=== PATIENT | female | born 2000 | race Caucasian/White ===

== ENCOUNTER 2021-10-07 16:18 | Outpatient (CLI) | payer BC, MEDICAID, SELFPAY ==
[2021-10-07 18:35] LABS: Amphetamine Urine VISTA NEGATIVE (<1000 ng/mL); Barbiturate Urine VISTA NEGATIVE (< 200 ng/mL); Benzodiazepine Urine VISTA NEGATIVE (< 200 ng/mL); Cocaine Urine VISTA NEGATIVE (< 300 ng/mL); Ecstacy Urine VISTA NEGATIVE (< 500 ng/mL); Methadone Urine VISTA NEGATIVE (< 300 ng/mL); PCP Urine VISTA NEGATIVE (< 25 ng/mL); THC Urine VISTA NEGATIVE (< 50 ng/mL); Vista UDS pH Range 6
[2021-10-10 18:07] LABS: Chlamydia By Nucleic Acid AMP Negative (Negative)
[2021-10-10 21:18] LABS: Gonococcus By Nucleic Acid AMP Negative (Negative)
[2021-10-14 13:33] LABS: HPV Reflexed? NOT INDICATED
== END 2021-10-07 23:59 | disposition home or self-care (01) ==
LOC: LABSPEC 16:19
PROVIDERS: Visit Provider Obstetrics & Gynecology
DX: Z34.90 Encounter for supervision of normal pregnancy, unspecified, unspecified trimester (principal)
CPT/HCPCS: 80307; 87086; 87088; 87491; 87591; 88175; G0145

== ENCOUNTER 2021-11-01 12:24 | Outpatient (CLI) | payer BC, MEDICAID, SELFPAY ==
[2021-11-01 13:35] LABS: Absolute Lymphocyte Count 1.51 X10^3/uL (0.83-4.51); Basophil# 0.03 X10^3/uL; Basophil% 0.3 % (0-1); Eosinophil# 0.04 X10^3/uL; Eosinophils% 0.4 % (0-5); Hematocrit 39.2 % (37-47); Hemoglobin 13.7 g/dL (12.0-15.0); Lymphocyte # 1.51 X10^3/ul (0.83-4.51); Lymphocyte % 16.5 % (19-41); Mean Corp Hgb Conc 34.9 g/dL (32-36); Mean Corpuscular Hgb 30.8 pg (27.0-32.0); Mean Corpuscular Volume 88.1 fL (81-99); Mean Platelet Vol. 9.6 fl (6.2-12.0); Monocyte# 0.53 X10^3/uL; Monocyte% 5.8 % (0-10); NRBC Flagged by Analyzer 0 % (0-5); Neutrophil # 6.99 X10^3/uL (2.7-7.7); Neutrophil % 76.7 % (47-70); Platelet Count 299 K/mm3 (150-450); RBC Distribution Width SD 38.7 fl (35.1-43.9); Red Blood Count 4.45 M/mm3 (4.2-5.4); White Blood Count 9.1 K/mm3 (4.4-11.0)
[2021-11-01 13:37] LABS: NATERA MAILED SPECIMEN
[2021-11-01 14:45] LABS: HIV - WCH Non-Reactive (Nonreactive); Hepatitis B Surface Antigen Non-Reactive (Nonreactive); Hepatitis C Antibody Non-Reactive (Nonreactive); Rubella IgG Reactive (Nonreactive); Syphilis Antibodies Non-reactive
[2021-11-03 15:57] LABS: V-Zoster IgG (Immunity) 2379 index (Immune >165)
== END 2021-11-01 23:59 | disposition home or self-care (01) ==
PROVIDERS: Obstetrics & Gynecology; Referring Provider Nurse Practitioner Women's Health; Visit Provider Nurse Practitioner Women's Health
DX: Z34.90 Encounter for supervision of normal pregnancy, unspecified, unspecified trimester (principal)
CPT/HCPCS: 36415; 85025; 86703; 86762; 86780; 86787; 86803; 86850; 86900; 86901; 87340

== ENCOUNTER → 2022-02-08 | Outpatient (CLI) | payer BC, MEDICAID, SELFPAY ==
[2022-02-08 16:39] LABS: Absolute Lymphocyte Count 1.64 X10^3/uL (0.83-4.51); Absolute Neutrophil Count 9.2 X10^3/uL (2.0-7.7); Basophil# 0.03 X10^3/uL; Basophil% 0.3 % (0-1); Eosinophil# 0.06 X10^3/uL; Eosinophils% 0.5 % (0-5); Hematocrit 32.5 % (37-47); Hemoglobin 10.8 g/dL (12.0-15.0); Lymphocyte # 1.64 X10^3/ul (0.83-4.51); Lymphocyte % 13.9 % (19-41); Mean Corp Hgb Conc 33.2 g/dL (32-36); Mean Corpuscular Hgb 29.8 pg (27.0-32.0); Mean Corpuscular Volume 89.8 fL (81-99); Mean Platelet Vol. 9.3 fl (6.2-12.0); Monocyte# 0.71 X10^3/uL; NRBC Flagged by Analyzer 0 % (0-5); Neutrophil # 9.22 X10^3/uL (2.7-7.7); Neutrophil % 78.3 % (47-70); Platelet Count 356 K/mm3 (150-450); RBC Distribution Width CV 12.1 % (11.6-14.6); RBC Distribution Width SD 39.4 fl (35.1-43.9); Red Blood Count 3.62 M/mm3 (4.2-5.4); White Blood Count 11.8 K/mm3 (4.4-11.0)
[2022-02-08 17:01] LABS: Glucose Challenge Gest 1H 50g 117 mg/dL (70-140)
== END | disposition home or self-care (01) ==
LOC: LAB 16:01
PROVIDERS: Nurse Practitioner Women's Health; Referring Provider Obstetrics & Gynecology; Visit Provider Obstetrics & Gynecology
DX: Z34.90 Encounter for supervision of normal pregnancy, unspecified, unspecified trimester (principal)
CPT/HCPCS: 36415; 82950; 85025

== ENCOUNTER → 2022-04-11 | Outpatient (CLI) | payer BC, MEDICAID, SELFPAY | END | disposition home or self-care (01) | LOC: LABSPEC 16:24 | PROVIDERS: Referring Provider Obstetrics & Gynecology; Visit Provider Obstetrics & Gynecology | DX: Z34.90 Encounter for supervision of normal pregnancy, unspecified, unspecified trimester (principal); Z3A.36 36 weeks gestation of pregnancy | CPT/HCPCS: 87077; 87081; 87186 ==

== ENCOUNTER → 2022-04-25 | Outpatient (CLI) | payer BC, MEDICAID, SELFPAY ==
[2022-04-25 10:30] LABS: Absolute Lymphocyte Count 2.19 X10^3/uL (0.83-4.51); Absolute Neutrophil Count 8.8 X10^3/uL (2.0-7.7); Basophil# 0.06 X10^3/uL; Basophil% 0.5 % (0-1); Eosinophil# 0.07 X10^3/uL; Eosinophils% 0.6 % (0-5); Hemoglobin 12.4 g/dL (12.0-15.0); Lymphocyte # 2.19 X10^3/ul (0.83-4.51); Lymphocyte % 17.8 % (19-41); Mean Corp Hgb Conc 32.6 g/dL (32-36); Mean Corpuscular Hgb 28.7 pg (27.0-32.0); Mean Platelet Vol. 10.2 fl (6.2-12.0); Monocyte# 1.02 X10^3/uL; Monocyte% 8.3 % (0-10); NRBC Flagged by Analyzer 0 % (0-5); Neutrophil # 8.83 X10^3/uL (2.7-7.7); Neutrophil % 71.5 % (47-70); Platelet Count 295 K/mm3 (150-450); RBC Distribution Width CV 14.3 % (11.6-14.6); RBC Distribution Width SD 45.7 fl (35.1-43.9); Red Blood Count 4.32 M/mm3 (4.2-5.4); White Blood Count 12.3 K/mm3 (4.4-11.0)
== END | disposition home or self-care (01) ==
LOC: PAVLAB 10:01
PROVIDERS: Referring Provider Nurse Practitioner Women's Health; Visit Provider Nurse Practitioner Women's Health
DX: O99.019 Anemia complicating pregnancy, unspecified trimester (principal)
CPT/HCPCS: 36415; 85025

== ENCOUNTER 2022-05-14 17:55 | Outpatient (CLI) | payer BC, MEDICAID, SELFPAY ==
[2022-05-14 18:19] VITALS: BP 121/68; PULSE 102; TEMP 36.4; O2SAT 99
[2022-05-14 18:22] VITALS: BMI 31.1
[2022-05-14 19:03] LABS: ROM Internal Control Test YES-OK TO RESULT pt. (Internal QC); ROM Patient Test Negative (Negative)
--- NOTE | 2022-05-18 18:36 | OB.TRI.PN_ITS ---
Progress Notes Date of Service: 05/14/22 Progress Note: Patient presents for triage evaluation secondary to possible LOF FHT: 130 Moderate variability reactive no decelerations category I tracing [place]: no regular Contractions Assessment and plan: amniotic membranes intact Reactive NST, reassuring maternal and status patient discharged to home to follow-up as scheduled. See problem list details for additional plan information. Laboratory Studies: Laboratory Tests 05/14/22 Range/Units 18:27 Vag Amniotic Fld Detect Negative (Negative) Charges/Coding Procedures Urinary/Genital 52xxx-59xxx: [id number] non-stress test Interp
== END 2022-05-14 19:35 | disposition home or self-care (01) ==
LOC: WPOUT 18:03 → WP 18:04
PROVIDERS: Visit Provider Obstetrics & Gynecology
DX: O42.90 Premature rupture of membranes, unspecified as to length of time between rupture and onset of labor, unspecified weeks of gestation (principal)
CPT/HCPCS: 59025; 59050; 84112; 99218; G0378

== ENCOUNTER 2022-05-15 03:33 | Inpatient (IN) | payer BC, MEDICAID, SELFPAY ==
[2022-05-15] VITALS (70 sets, daily range): BP systolic 85–134; BP diastolic 50–97; PULSE 77–119; RESP 20; TEMP 36.1–36.8; O2SAT 96–100; BMI 31.1
[2022-05-15] MEDS: Lactated Ringers 1,000 ML 50 ML IV (04:27)
[2022-05-15] MEDS: LACTATED RINGERS 500 ML 999 ML IV ×4 (04:27→14:43)
[2022-05-15 04:52] LABS: Absolute Lymphocyte Count 2.06 X10^3/uL (0.83-4.51); Absolute Neutrophil Count 9.5 X10^3/uL (2.0-7.7); Basophil# 0.04 X10^3/uL; Basophil% 0.3 % (0-1); Eosinophil# 0.05 X10^3/uL; Eosinophils% 0.4 % (0-5); Hematocrit 36.4 % (37-47); Hemoglobin 12.4 g/dL (12.0-15.0); Lymphocyte # 2.06 X10^3/ul (0.83-4.51); Lymphocyte % 15.9 % (19-41); Mean Corp Hgb Conc 34.1 g/dL (32-36); Mean Corpuscular Hgb 29.4 pg (27.0-32.0); Mean Corpuscular Volume 86.3 fL (81-99); Mean Platelet Vol. 10.5 fl (6.2-12.0); Monocyte# 1.19 X10^3/uL; Monocyte% 9.2 % (0-10); NRBC Flagged by Analyzer 0 % (0-5); Neutrophil # 9.46 X10^3/uL (2.7-7.7); Neutrophil % 73.2 % (47-70); Platelet Count 277 K/mm3 (150-450); RBC Distribution Width SD 46.4 fl (35.1-43.9); Red Blood Count 4.22 M/mm3 (4.2-5.4); White Blood Count 12.9 K/mm3 (4.4-11.0)
[2022-05-15] MEDS: Cefazolin 2 GM in 0.9% Normal Saline 100 ML IV (05:12)
[2022-05-15] MEDS: fentaNYL-bupivacaine (epidural) 100 ML BAG EPIDURAL ×4 (05:42→18:51)
[2022-05-15] MEDS: Ondansetron 4 MG/2 ML Vial IV ×4 (06:09→19:58)
[2022-05-15] MEDS: Lactated Ringers 1,000 ML 200 ML IV ×3 (10:08→22:56)
[2022-05-15] MEDS: Oxytocin 15 Units/NS 250ml 15 UNITS/250 ML IV.SOLN 2 UNITS IV (10:50)
--- NOTE | 2022-05-15 11:53 | HP.PCM.OB_ITS ---
HPI - General General Date of Admission: 05/15/22 HPI Narrative MARK JARQUIN, is a 22 F who presents in labor at 41weeks by LMP. Maternal Data Information KT Calculator Estimated Delivery Date Method Current WG Current Estimate 05/08/22 LMP (Uncertain) 41w 0d Final KT Source: LMP Gestational age: 41 PFSH PFSH Medical History (Updated 05/15/22 @ 11:56 by Rosana Solano CNM) Anemia affecting Home Medications prenat.vits,laurence,[id number] 1 tab PO DAILY 09/27/21 [History Last Taken 05/13/22 21:00] Allergy/AdvReac Type Severity Reaction Status Date / Time amoxicillin Allergy Rash Verified 05/14/22 18:22 Family History Mother Breast cancer remissison x 9 years Social History adopted: No household members: none housing: apartment current occupational status: employed current occupation: [employer] pets and animals: No Smoking Status: Never smoker alcohol intake: never substance use type: does not use do you feel safe at home: Yes History 1 Elective abortions Hx Para 0 Spontaneous abortions Hx # Term Pregnancies Ectopic pregnancies Hx # Pregnancies Multiple births # of living children Visit Details Expected Delivery Route/Plan Labor Preferences- CB/BF classes: encouraged labor support person: Dana labor intervention preferences: [] pain management options preferred: epidural cut cord/dad catch: yes : no- formula PP control planned: discussed discussed possible routes of delivery and associated risks: [] special requests: [] Plans Covid status: discussed Flu vaccine: discussed Tdap vaccine: declined Rhogam: na LARC form signed: yes movement and labor precautions reviewed. Problem list reviewed and updated with the most current plan of care details and appropriate orders placed. Relevant counseling for the gestational age provided. Continue routine care and follow up unless otherwise noted in visit notes/problem list details OB Flowsheet Initial Weight: 117 lb Date -?-?-?-?-?-?-?-?-?-?-?-?- EGA Weight BP Urine Prot -?-?-?-?-?-?-?-?-?-?-?-?- Glucose FHR FuHt Pres Dilation -?-?-?-?-?-?-?-?-?-?-?-?- Effaced St Visit Note 10/07/21 -?-?-?-?-?-?-?-?-?-?-?-?- 9w 4d 117 lb (+0 oz) 118/66 -?-?-?-?-?-?-?-?-?-?-?-?- 189 -?-?-?-?-?-?-?-?-?-?-?-?- SM- CRL cons wit h LMP 11/01/21 -?-?-?-?-?-?-?-?-?-?-?-?- 13w 1d 124 lb (+7 lb) 110/60 -?-?-?-?-?-?-?-?-?-?-?-?- 147 -?-?-?-?-?-?-?-?-?-?-?-?- MH-No Vb, LOF. B rief US to confirm FHT. Labs today 11/29/21 -?-?-?-?-?-?-?-?-?-?-?-?- 17w 1d 126 lb (+9 lb) 110/72 Negative -?-?-?-?-?-?-?-?-?-?-?-?- Negative 155 -?-?-?-?-?-?-?-?-?-?-?-?- SM- no vb lof no regular ctx PRR 12/27/21 -?-?-?-?-?-?-?-?-?-?-?-?- 21w 1d 133 lb (+16 lb) 110/60 -?-?-?-?-?-?-?-?-?-?-?-?- 145 -?-?-?-?-?-?-?-?-?-?-?-?- SM- no vb lof go od fm no regular ctx 01/24/22 -?-?-?-?-?-?-?-?-?-?-?-?- 25w 1d 135 lb (+18 lb) 92/70 Negative -?-?-?-?-?-?-?-?-?-?-?-?- Negative 130 24 -?-?-?-?-?-?-?-?-?-?-?-?- SM- no vb lof go od fm no regular ctx cbc gct next time encouraged CB classes 02/14/22 -?-?-?-?-?-?-?-?-?-?-?-?- 28w 1d 141 lb 8 oz (+24 lb 8 oz) 118/74 Negative -?-?-?-?-?-?-?-?-?-?-?-?- Negative 143 27 -?-?-?-?-?-?-?-?-?-?-?-?- MH-No VB, LOF. G ood FM. taking fe. Larc. 02/28/22 -?-?-?-?-?-?-?-?-?-?-?-?- 30w 1d 145 lb 8 oz (+28 lb 8 oz) 112/80 Trace -?-?-?-?-?-?-?-?-?-?-?-?- Negative 145 29 -?-?-?-?-?-?-?-?-?-?-?-?- JV- no lof, vagi nal bleeding, or dec fm. declines tdap. 03/14/22 -?-?-?-?-?-?-?-?-?-?-?-?- 32w 1d 148 lb 8 oz (+31 lb 8 oz) 118/70 Negative -?-?-?-?-?-?-?-?-?-?-?-?- Negative 125 31 -?-?-?-?-?-?-?-?-?-?-?-?- SM- no vb lof go od fm no regular ctx 03/28/22 -?-?-?-?-?-?-?-?-?-?-?-?- 34w 1d 152 lb (+35 lb) 118/78 Negative -?-?-?-?-?-?-?-?-?-?-?-?- Negative 125 34 -?-?-?-?-?-?-?-?-?-?-?-?- SM- no vb lof go od fm no reuglar ctx 04/11/22 -?-?-?-?-?-?-?-?-?-?-?-?- 36w 1d 155 lb (+38 lb) 112/74 -?-?-?-?-?-?-?-?-?-?-?-?- 130 36 -?-?-?-?-?-?-?-?-?-?-?-?- SM- no vb lof go od fm no reuglar ctx gbs done 04/18/22 -?-?-?-?-?-?-?-?-?-?-?-?- 37w 1d 154 lb 6 oz (+37 lb 6 oz) 113/79 Negative -?-?-?-?-?-?-?-?-?-?-?-?- Negative 139 37 -?-?-?-?-?-?-?-?-?-?-?-?- -No VB, LOF or CTX. Good fm 04/25/22 -?--?-?-?-?-?-?-?-?-?-?-?- 38w 1d 157 lb 6 oz (+40 lb 6 oz) 110/74 Negative -?-?-?-?-?-?-?-?-?-?-?-?- Negative 131 38 1 -?-?-?-?-?-?-?-?--?-?-?-?- 40 -3 -No VB, LOF or CTX. Good FM 05/02/22 -?-?-?-?-?-?-?-?-?-?-?-?- 39w 1d 157 lb 2 oz (+40 lb 2 oz) 109/72 Negative -?-?-?-?-?-?-?-?-?-?-?-?- Negative 125 38 -?-?-?-?-?-?-?-?-?-?-?-?- JV- pt declines exam. no lof, vaginal bleeding, or dec fm. 05/09/22 -?-?-?-?-?-?-?-?-?-?-?-?- 40w 1d 156 lb (+39 lb) 103/70 Negative -?-?-?-?-?-?-?-?-?-?-?-?- Negative 129 38 1 -?-?-?-?-?-?-?-?-?-?-?-?- 40 -3 JV- no lof , v aginal bleeding, or dec fm. setting up IOL for 41 weeks NST FHR Rate Baby A Baseline: 95-100 Variability:: Moderate Accelerations:: 15 x 15 Decelerations:: None NST Reactive:: Yes FHR Category:: Category II Uterine Activity:: irre Vital Signs Vital Signs Vital Signs: 05/15/22 03:46 05/15/22 03:46 05/15/22 03:45 Temperature Temperature Source Temporal Pulse Rate 105 H Blood Pressure 126/70 H BP Systolic 126 BP Diastolic 70 Pulse Ox 05/15/22 03:46 05/15/22 03:46 05/15/22 03:45 Temperature 97.6 F L Temperature Source Pulse Rate 102 H Blood Pressure BP Systolic BP Diastolic Pulse Ox 97 05/15/22 03:51 05/15/22 03:51 05/15/22 05:26 Temperature Temperature Source Pulse Rate 105 H 104 H Blood Pressure BP Systolic BP Diastolic Pulse Ox 97 05/15/22 05:26 05/15/22 05:31 05/15/22 05:31 Temperature Temperature Source Pulse Rate 117 H Blood Pressure BP Systolic BP Diastolic Pulse Ox 100 100 05/15/22 05:33 05/15/22 05:33 05/15/22 05:36 Temperature Temperature Source Pulse Rate 100 88 Blood Pressure 133/97 H BP Systolic 133 BP Diastolic 97 Pulse Ox 05/15/22 05:36 05/15/22 05:38 05/15/22 05:38 Temperature Temperature Source Pulse Rate 85 Blood Pressure 129/74 H BP Systolic 129 BP Diastolic 74 Pulse Ox 100 05/15/22 05:42 05/15/22 05:42 05/15/22 05:41 Temperature Temperature Source Pulse Rate 86 Blood Pressure 108/52 L BP Systolic 108 BP Diastolic 52 Pulse Ox 99 05/15/22 05:46 05/15/22 05:46 05/15/22 05:48 Temperature Temperature Source Pulse Rate 102 H Blood Pressure 106/53 L BP Systolic 106 BP Diastolic 53 Pulse Ox 98 05/15/22 05:48 05/15/22 05:48 05/15/22 05:48 Temperature 97.5 F L Temperature Source Temporal Pulse Rate 93 Blood Pressure BP Systolic BP Diastolic Pulse Ox 05/15/22 05:51 05/15/22 05:51 05/15/22 05:54 Temperature Temperature Source Pulse Rate 105 H Blood Pressure 112/54 L BP Systolic 112 BP Diastolic 54 Pulse Ox 98 05/15/22 05:54 05/15/22 05:56 05/15/22 05:56 Temperature Temperature Source Pulse Rate 98 102 H Blood Pressure BP Systolic BP Diastolic Pulse Ox 98 05/15/22 05:59 05/15/22 05:59 05/15/22 06:01 Temperature Temperature Source Pulse Rate 94 104 H Blood Pressure 93/55 L BP Systolic 93 BP Diastolic 55 Pulse Ox 05/15/22 06:01 05/15/22 06:03 05/15/22 06:03 Temperature Temperature Source Pulse Rate 108 H Blood Pressure 128/60 H BP Systolic 128 BP Diastolic 60 Pulse Ox 98 05/15/22 06:27 05/15/22 06:27 05/15/22 06:27 Temperature Temperature Source Pulse Rate 94 Blood Pressure 113/56 L BP Systolic 113 BP Diastolic 56 Pulse Ox 97 05/15/22 06:26 05/15/22 06:26 05/15/22 07:16 Temperature 97.8 F Temperature Source Temporal Pulse Rate Blood Pressure 102/51 L BP Systolic 102 BP Diastolic 51 Pulse Ox 05/15/22 07:16 05/15/22 07:16 05/15/22 07:16 Temperature Temperature Source Temporal Pulse Rate 85 Blood Pressure BP Systolic BP Diastolic Pulse Ox 98 05/15/22 07:16 05/15/22 08:14 05/15/22 08:14 Temperature 97.6 F L Temperature Source Pulse Rate 94 Blood Pressure 97/55 L BP Systolic 97 BP Diastolic 55 Pulse Ox 05/15/22 08:14 05/15/22 08:14 05/15/22 08:19 Temperature Temperature Source Temporal Pulse Rate 89 Blood Pressure BP Systolic BP Diastolic Pulse Ox 99 05/15/22 08:19 05/15/22 08:14 05/15/22 08:24 Temperature 97.6 F L Temperature Source Pulse Rate 85 Blood Pressure BP Systolic BP Diastolic Pulse Ox 98 05/15/22 08:24 05/15/22 08:29 05/15/22 08:29 Temperature Temperature Source Pulse Rate 85 Blood Pressure BP Systolic BP Diastolic Pulse Ox 97 96 05/15/22 08:34 05/15/22 08:34 05/15/22 08:39 Temperature Temperature Source Pulse Rate 91 83 Blood Pressure BP Systolic BP Diastolic Pulse Ox 97 05/15/22 08:39 05/15/22 08:44 05/15/22 08:44 Temperature Temperature Source Pulse Rate 84 Blood Pressure BP Systolic BP Diastolic Pulse Ox 97 97 05/15/22 08:49 05/15/22 08:49 05/15/22 08:54 Temperature Temperature Source Pulse Rate 80 80 Blood Pressure BP Systolic BP Diastolic Pulse Ox 97 05/15/22 08:54 05/15/22 08:59 05/15/22 08:59 Temperature Temperature Source Pulse Rate 79 Blood Pressure BP Systolic BP Diastolic Pulse Ox 97 97 05/15/22 09:04 05/15/22 09:04 05/15/22 09:09 Temperature Temperature Source Pulse Rate 82 84 Blood Pressure BP Systolic BP Diastolic Pulse Ox 97 05/15/22 09:09 05/15/22 09:13 05/15/22 09:13 Temperature Temperature Source Pulse Rate 96 Blood Pressure 104/53 L BP Systolic 104 BP Diastolic 53 Pulse Ox 97 05/15/22 09:14 05/15/22 09:14 05/15/22 09:13 Temperature Temperature Source Temporal Pulse Rate 119 H Blood Pressure BP Systolic BP Diastolic Pulse Ox 99 05/15/22 09:13 05/15/22 09:15 05/15/22 09:19 Temperature 97.0 F L Temperature Source Pulse Rate 90 98 Blood Pressure BP Systolic BP Diastolic Pulse Ox 05/15/22 09:19 05/15/22 09:24 05/15/22 09:24 Temperature Temperature Source Pulse Rate 101 H Blood Pressure BP Systolic BP Diastolic Pulse Ox 98 98 05/15/22 09:29 05/15/22 09:29 05/15/22 09:34 Temperature Temperature Source Pulse Rate 91 98 Blood Pressure BP Systolic BP Diastolic Pulse Ox 98 05/15/22 09:34 05/15/22 09:39 05/15/22 09:39 Temperature Temperature Source Pulse Rate 97 Blood Pressure BP Systolic BP Diastolic Pulse Ox 98 98 05/15/22 09:44 05/15/22 09:44 05/15/22 09:49 Temperature Temperature Source Pulse Rate 94 95 Blood Pressure BP Systolic BP Diastolic Pulse Ox 98 05/15/22 09:49 05/15/22 09:54 05/15/22 09:54 Temperature Temperature Source Pulse Rate 82 Blood Pressure BP Systolic BP Diastolic Pulse Ox 98 97 05/15/22 09:59 05/15/22 09:59 05/15/22 10:04 Temperature Temperature Source Pulse Rate 89 94 Blood Pressure BP Systolic BP Diastolic Pulse Ox 98 05/15/22 10:04 05/15/22 10:09 05/15/22 10:09 Temperature Temperature Source Pulse Rate 97 Blood Pressure BP Systolic BP Diastolic Pulse Ox 98 98 05/15/22 10:14 05/15/22 10:14 05/15/22 10:19 Temperature Temperature Source Pulse Rate 97 91 Blood Pressure BP Systolic BP Diastolic Pulse Ox 98 05/15/22 10:19 05/15/22 10:24 05/15/22 10:24 Temperature Temperature Source Pulse Rate 79 Blood Pressure BP Systolic BP Diastolic Pulse Ox 97 97 05/15/22 10:29 05/15/22 10:29 05/15/22 10:34 Temperature Temperature Source Pulse Rate 84 94 Blood Pressure BP Systolic BP Diastolic Pulse Ox 98 05/15/22 10:34 05/15/22 10:36 05/15/22 10:36 Temperature Temperature Source Pulse Rate 81 Blood Pressure 110/62 BP Systolic 110 BP Diastolic 62 Pulse Ox 98 05/15/22 10:36 05/15/22 10:36 05/15/22 11:34 Temperature 97.5 F L Temperature Source Temporal Temporal Pulse Rate Blood Pressure BP Systolic BP Diastolic Pulse Ox 05/15/22 11:34 05/15/22 11:34 05/15/22 11:34 Temperature Temperature Source Pulse Rate 85 Blood Pressure 101/66 BP Systolic 101 BP Diastolic 66 Pulse Ox 100 05/15/22 11:34 Temperature 97.2 F L Temperature Source Pulse Rate Blood Pressure BP Systolic BP Diastolic Pulse Ox Weight Weight: 159 lb 4 oz Body Mass Index (BMI) 31.1 Physical Exam Const alert, oriented x3 and no apparent distress General Appearance: cooperative, comfortable and well kempt; Negative for in distress Orientation / Consciousness: awake and oriented to person Exam Limitations: no limitations HEENT normocephalic Mouth: oral and palatal mucosa normal Neck full ROM and thyroid normal Chest inspection of chest normal Resp normal respiratory effort Effort and Inspection: able to speak in complete sentences and symmetric chest movement Cardio regular rate Peripheral Pulses: pulses 2+ throughout GI normal to inspection, nondistended, normoactive bowel sounds Inspection: gravid no CVA tenderness and appearance of the vagina normal External Female Exam: normal appearance of the urethra; Negative for external lesion OB / External & Speculum: external exam normal Manual OB Exam: estimated gestational size appropriate and presentation cephalic Uterus Palpation: Negative for uterus tender Extremity normal to inspection Skin no rashes or lesions noted Neuro deep tendon reflexes 2+ bilaterally and gait normal Motor Exam: strength 5/5 throughout and clonus absent Psych Activity / Motor Behavior: appropriate eye contact Speech: normal speech Labs Labs Labs: Blood Type O POSITIVE Antibody Screen NEGATIVE Hct 36.4 % (37-47) L Hgb 12.4 g/dL (12.0-15.0) Syphilis Total Ab Non-reactive VZV IgG Antibody 2379 index (Immune >165) Rubella IgG Antibody Reactive (Nonreactive) Hep Bs Antigen Non-Reactive (Nonreactive) Chlamydia DNA (JEFF) Negative (Negative) Neisseria gonorrhoeae DNA (JEFF) Negative (Negative) HIV 1&2 Antibody Non-Reactive (Nonreactive) Glucose 1 Hr 50 gm 117 mg/dL (70-140) Assessment & Plan (1) Supervision of normal first : COMMENT: PRR KT:05/08/22 frantz Todd BF:Aerion (2) GBS (group B Streptococcus carrier), +RV culture, currently : COMMENT: PCN in labor (3) Active labor at term: PLAN: -admit to L&D with routine orders -AROM'd by Dr. Adam clear fluid -Pitocin per protocol for unchanged cervical exam -GBS coverage per protocol
--- NOTE | 2022-05-15 13:07 | PN.OBGYN_ITS ---
Subjective Subjective comfortable with epidural Objective Data Objective Data Vital Signs: Vital Signs Temp Pulse BP Pulse Ox 97.0 F L 86 101/65 100 05/15/22 12:32 05/15/22 12:32 05/15/22 12:32 05/15/22 11:34 Weight: 159 lb 4 oz Body Mass Index (BMI) 31.1 Intake & Output: Intake and Output for Last 24 Hours 05/13/22 05/14/22 05/15/22 23:59 23:59 23:59 Intake Total 2577.17 / 2577.17 Balance 2577.17 / 2577.17 Lab / Micro Data Result Diagrams: 05/15/22 04:25 Labs: Laboratory Results - last 24 hr 05/15/22 04:25: WBC 12.9 H, RBC 4.22, Hgb 12.4, Hct 36.4 L, MCV 86.3, MCH 29.4, MCHC 34.1, RDW Std Deviation 46.4 H, RDW Coeff of Rich 15.0 H, Plt Count 277, MPV 10.5, Immature Gran % (Auto) 1.000 H, Neut % (Auto) 73.2 H, Lymph % (Auto) 15.9 L, [place] % (Auto) 9.2, Eos % (Auto) 0.4, Baso % (Auto) 0.3, Absolute Neuts (auto) 9.5 H, Absolute Lymphs (auto) 2.06, Nucleated RBC % 0 05/15/22 04:25: Blood Type O POSITIVE, Antibody Screen NEGATIVE Micro: Microbiology 05/15/22 04:25 Nasal Secretion SARS-CoV-2 Antigen (Rapid) - Final Physical Exam Manual OB Exam: dilated 5.5, effaced 80 and station -1 Amniotic Fluid: clear amniotic fluid NST FHR Rate Baby A Baseline: 95 Variability:: Moderate Accelerations:: 15 x 15 Decelerations:: Early NST Reactive:: Yes FHR Category:: Category I Uterine Activity:: q2-3 minutes, strong to palp. Assessment & Plan (1) Active labor at term: PLAN: maternal and status reassuring Pain management: epidural GBS positive, on ancef Management of any complications: [none] I have reviewed the [facility] and made any clinically relevant updates. (2) Supervision of normal first : COMMENT: PRR KT:05/08/22 frantz Todd BF:Dana (3) : QUALIFIERS: Weeks of gestation: 40 weeks Qualified Code(s): Z3A.40 - 40 weeks gestation of COMMENT: nl anatomy, NIPT low risk, carrier neg. (4) Anemia affecting : COMMENT: Pt to add iron; 04/25 CBC:nl (5) Refuses tetanus, diphtheria, and acellular pertussis (Tdap) vaccination: (6) GBS (group B Streptococcus carrier), +RV culture, currently : COMMENT: PCN in labor
[2022-05-15] MEDS: Cefazolin 1 GM/50 ML BAG IV ×2 (13:33→22:57)
--- NOTE | 2022-05-15 15:55 | NURSING ---
IV pitocin to be started and increased by 1mu/min per physician verbal order.
[2022-05-15] MEDS: Acetaminophen 500 MG Tablet PO (19:09)
[2022-05-15] MEDS: Amnioinfusion- 0.9% NS 1,000 ML IV.SOLN. 1000 ML INTRA-UTER (19:34)
--- NOTE | 2022-05-15 19:48 | PN_ITS ---
Progress Note 6 cm with minimal cervical change but inadequate contractions until the last 2 hours. current tracing: FHT: 90-105 min- Moderate variability reactive early decelerations occasional mild periodic variable category II tracing but overall reassuring [place]: q 2-3 Contractions reviewed tracing abnormalities since last note: see above A/P: plan of care reviewed with health and wellness coordinator and nursing staff due to protraction of labor and heart rate decelerations. reviewed with patient proceeding with cs now vs exp management for another 2 hours due to just now becoming adequate with contractions, decision to proceed with exp management with pitocin, amnioinfusion started. positive scalp stim and now moderate variability. position changes.
[2022-05-15] MEDS: 0.9% Saline Lock 10 ML Syringe IV (19:58)
--- NOTE | 2022-05-15 22:30 | PN_ITS ---
Progress Note now /+1 station current tracing: FHT: change of baseline to 100 moderate variability positive scalp stim periodic variable decels cat II tracing [place]: q 2 Contractions reviewed tracing abnormalities since last note: periodic variables prolonged decels resolved with position changes A/P: pitocin decreased IVF amnioinfusion bolus and hands/knees. reveiwed tracing with contractor [employer] and staff at bedside, will remain in house at this time to reevaluate
--- NOTE | 2022-05-15 23:03 | PCM.PN.OB ---
Subjective Subjective feeling increased consistent vaginal pressure Objective Data Objective Data Vital Signs: Vital Signs Temp Pulse Resp BP Pulse Ox O2 Del Method 98 F 92 20 H 123/69 H 99 Room Air 05/15/22 22:25 05/15/22 22:25 05/15/22 22:25 05/15/22 22:25 05/15/22 22:25 05/15/22 22:25 Oxygen Delivery Method Room Air Weight: 159 lb 4 oz Body Mass Index (BMI) 31.1 Intake & Output: Intake and Output for Last 24 Hours 05/13/22 05/14/22 05/15/22 23:59 23:59 23:59 Intake Total 4818.77 / 4818.77 Output Total 1650 / 1650 Balance 3168.77 / 3168.77 Lab / Micro Data Result Diagrams: 05/15/22 04:25 Labs: Laboratory Results - last 24 hr 05/15/22 04:25: WBC 12.9 H, RBC 4.22, Hgb 12.4, Hct 36.4 L, MCV 86.3, MCH 29.4, MCHC 34.1, RDW Std Deviation 46.4 H, RDW Coeff of Rich 15.0 H, Plt Count 277, MPV 10.5, Immature Gran % (Auto) 1.000 H, Neut % (Auto) 73.2 H, Lymph % (Auto) 15.9 L, [place] % (Auto) 9.2, Eos % (Auto) 0.4, Baso % (Auto) 0.3, Absolute Neuts (auto) 9.5 H, Absolute Lymphs (auto) 2.06, Nucleated RBC % 0 05/15/22 04:25: Blood Type O POSITIVE, Antibody Screen NEGATIVE Micro: Microbiology 05/15/22 04:25 Nasal Secretion SARS-CoV-2 Antigen (Rapid) - Final Physical Exam Narrative 9.5/100/+1 NST FHR Rate Baby A Baseline: 95 Variability:: Moderate FHR Category:: Category II Uterine Activity:: q2 Assessment & Plan (1) Active labor at term: (2) : QUALIFIERS: Weeks of gestation: 40 weeks Qualified Code(s): Z3A.40 - 40 weeks gestation of COMMENT: nl anatomy, NIPT low risk, carrier neg. PLAN: Plan Dr. Adam continues in house. cat 2 tracing with moderate variability. pit at 4mu. improved variables with position changes. will re-evaluate
[2022-05-16] VITALS (19 sets, daily range): BP systolic 103–121; BP diastolic 43–69; PULSE 79–112; RESP 14–18; TEMP 36.2–36.9; O2SAT 95–100
[2022-05-16] MEDS: fentaNYL-bupivacaine (epidural) 100 ML BAG EPIDURAL (00:30)
[2022-05-16] MEDS: Amnioinfusion- 0.9% NS 1,000 ML IV.SOLN. 1000 ML INTRA-UTER (00:37)
[2022-05-16] MEDS: 0.9% Saline Lock 10 ML Syringe IV ×4 (00:50→22:40)
[2022-05-16] MEDS: Ondansetron 4 MG/2 ML Vial IV (00:50)
[2022-05-16] MEDS: Sodium Citrate/Citric Acid 30 ML UDC PO (01:20)
--- NOTE | 2022-05-16 01:27 | EX.PCM.OBRPT ---
Assessment & Plan (1) Arrest of dilation, delivered, current hospitalization: COMMENT: 8-9 cm CPD suspected (2) Active labor at term: (3) Supervision of normal first : COMMENT: PRR KT:05/08/22 frantz Todd BF:Aerion (4) : QUALIFIERS: Weeks of gestation: 40 weeks Qualified Code(s): Z3A.40 - 40 weeks gestation of COMMENT: nl anatomy, NIPT low risk, carrier neg. (5) Anemia affecting : COMMENT: Pt to add iron; 04/25 CBC:nl (6) Refuses tetanus, diphtheria, and acellular pertussis (Tdap) vaccination: (7) GBS (group B Streptococcus carrier), +RV culture, currently : COMMENT: PCN in labor (8) delivery delivered: COMMENT: LTCS SM AOD 8-9 cm frantz Todd Maternal Data Information KT Calculator Estimated Delivery Date Method Current WG Current Estimate 05/08/22 LMP (Uncertain) 41w 1d Final KT Source: LMP Gestational age: 39 Details Operative Information Date of Procedure: 05/16/22 Pre-Operative Diagnosis: AOD 8-9 Post-Operative Diagnosis: same Procedure Type: low transverse nutrition internship #1: Loulou Qiu Type of Anesthesia: Epidural Special Medications: none Drain: Kline to straight drain Fluids Replaced: crystalloid Findings Description of Procedure: Presented at 3 cm and made slow change throughout the day but was not adequate with contractions. When she was adequate with contractions she may change to 9 cm and then after 4 hours was still 9 cm with a swollen cervix making it more almost like 8 cm and therefore the decision was made for proceeding with a primary low transverse . Epidural was inadequate and therefore was pulled and a spinal was placed. The patient was placed in the dorsal supine position with leftward tilt. Patient was prepped and draped in the normal sterile fashion. Pfannenstiel skin incision was made with the scalpel and carried through to the underlying layer of fascia with the scalpel. Fascia was nicked in the midline and the incision extended laterally. The rectus bellies were dissected off superiorly and inferiorly with out complication both sharply and bluntly. The peritoneum was entered digitally. The incision was stretched and a low transverse uterine incision was made with the scalpel. The 's head was delivered atraumatically followed by the anterior and posterior shoulders without complication the rest of the infant delivered. The cord was clamped and cut and the was handed off to awaiting nurse. The placenta was delivered spontaneously immediately following and was noted to be intact and have a three-vessel cord. The uterus was exteriorized cleared of all clots and debris, and the incision was closed in a double layer closure using #1 Monocryl. The ovaries and fallopian tubes were noted to be within normal limits. The uterus was returned to the maternal abdomen and gutters were cleared of all clots and debris. The peritoneum was closed with 3-0 Monocryl in a running fashion. Gloves were changed prior to fascial closure. Fascia was closed with 0 PDS in a running fashion. Subcutaneous tissue was copiously irrigated and the skin was closed with 3-0 Monocryl in a subcuticular fashion. Mepilex dressing was applied without complication. Patient was taken to recovery in stable condition. It was discussed with the patient that based on the clinical information obtained during this encounter, combined with her history, at this time I would recommend cesareans for future deliveries if further pregnancies are desired. Amniotic Membrane Rupture Type: Artificial Amniotic Fluid Description: Clear Placental Delivery Description: Spontaneous Placenta Disposition: [facility] Cord Vessel Description: 3 Vessels Cord Entanglement: None Delayed Cord Clamping: Yes Complications Risks of Surgery Discussed w/Patient: Bleeding, Infection, Need for Future C-Sections and Injury to surrounding structure(s) including bowel and bladder Complications: none Admit VTE Documentation VTE Present on Admission: No VTE Mechan Device Prophylaxis: SCD's Procedures Urinary/Genital [id number]: [id number] Delivery [facility]
[2022-05-16] MEDS: Clindamycin 900 MG/50 ML BAG 75 MG IV (01:49)
--- NOTE | 2022-05-16 02:26 | DCINST_ITS ---
Discharge Instructions Diet Discharge Diet: No restrictions Activity Discharge Activity: Return to Normal Activity, May Drive, May Shower and May Take a Tub Bath (in 4 weeks) May resume sexual activity in: 6-8 weeks (after seen by OB provider) Weight Bearing Status: Full weight bearing Lifting Restrictions: none Dressing / Incision Call your doctor if you observe: Fever of 101 or Higher, Inability to urinate, Using more than 1 pad per hour (for more than 2 hours in a row or more), Shortness of breath, Dizziness, Chest pain and - (headache not controlled with tylenol, change in vision) Follow Up Care When: in 6 weeks for visit, call the office to make the appointment. If you had elevated blood pressures call the office to be seen within 1 week. Test Results: Test results from this visit will be discussed in further detail at your follow- up appointment, if applicable. Discharge Plan Admission Admit Date/Time: 05/15/22 03:33 Attending Provider: Khushboo Adam Primary Care Provider: Care Physician,Leanna Primary Discharge Orders/Prescriptions Prescriptions: New oxycodone-acetaminophen [Percocet] 5-325 mg tablet 1 tab PO Q6H PRN (Reason: pain) 7 Days Qty: 20 0RF naproxen [naproxen] 500 mg tablet 500 mg PO BID PRN PRN (Reason: Pain) Qty: 30 1RF Continued prenat.vits,laurence,[id number] Tablet 1 tab PO DAILY Referrals / Follow Up: Care Physician,No Primary [Primary Care Provider] - Disposition Disposition (needs filled in before D/C Order can be placed): Home, Self Care
[2022-05-16] MEDS: Lactated Ringers 1,000 ML 100 ML IV (03:10)
[2022-05-16] MEDS: Ketorolac 30 MG/ML Syringe IV ×4 (03:30→22:39)
[2022-05-16] MEDS: Acetaminophen 500 MG Tablet 1000 MG PO ×3 (06:21→19:38)
[2022-05-16] MEDS: Senna/Docusate Sodium 1 Tablet PO (09:40)
[2022-05-17 01:35] VITALS: BP 105/63; PULSE 87; RESP 16; TEMP 36.4; O2SAT 96
[2022-05-17] MEDS: Acetaminophen 500 MG Tablet 1000 MG PO ×4 (01:36→19:28)
[2022-05-17] MEDS: Naproxen 500 MG Tablet PO ×3 (04:59→19:28)
[2022-05-17 06:57] LABS: Hematocrit 31.9 % (37-47); Hemoglobin 10.5 g/dL (12.0-15.0); Mean Corp Hgb Conc 32.9 g/dL (32-36); Mean Corpuscular Hgb 29.6 pg (27.0-32.0); Mean Corpuscular Volume 89.9 fL (81-99); Mean Platelet Vol. 9.7 fl (6.2-12.0); Platelet Count 246 K/mm3 (150-450); RBC Distribution Width CV 15.2 % (11.6-14.6); RBC Distribution Width SD 49.5 fl (35.1-43.9); Red Blood Count 3.55 M/mm3 (4.2-5.4); White Blood Count 19.7 K/mm3 (4.4-11.0)
[2022-05-17 07:36] VITALS: BP 108/58; PULSE 78; RESP 14; TEMP 36.6; O2SAT 97
--- NOTE | 2022-05-17 07:54 | PCM.PN.OB ---
Subjective Subjective Patient doing well without complaints. Tolerating PO. Ambulating and voiding without difficulty. feeding well. Denies chest pain, shortness of breath, calf pain/swelling, fevers, chills, lightheadedness. Objective Data Objective Data Vital Signs: Vital Signs Temp Pulse Resp BP Pulse Ox O2 Del Method 97.9 F 78 14 108/58 L 97 Room Air 05/17/22 07:36 05/17/22 07:36 05/17/22 07:36 05/17/22 07:36 05/17/22 07:36 05/17/22 07:36 Oxygen Delivery Method Room Air Weight: 159 lb 4 oz Body Mass Index (BMI) 31.1 Intake & Output: Intake and Output for Last 24 Hours 05/15/22 05/16/22 05/17/22 23:59 23:59 23:59 Intake Total 5882.24 / 5882.24 1945.88 / 1945.88 Output Total 1650 / 1650 2550 / 2550 700 / 700 Balance 4232.24 / 4232.24 -604.12 / -604.12 -700 / -700 Lab / Micro Data Result Diagrams: 05/17/22 06:50 Labs: Laboratory Results - last 24 hr 05/17/22 06:50: WBC 19.7 H, RBC 3.55 L, Hgb 10.5 L, Hct 31.9 L, MCV 89.9, MCH 29.6, MCHC 32.9, RDW Std Deviation 49.5 H, RDW Coeff of Rich 15.2 H, Plt Count 246, MPV 9.7 Micro: Microbiology 05/15/22 04:25 Nasal Secretion SARS-CoV-2 Antigen (Rapid) - Final ROS Constitutional Constitutional: Reports systems reviewed and no addt'l complaints, except as documented Cardiovascular Cardiovascular: Reports systems reviewed and no addt'l complaints, except as documented Respiratory/Chest Respiratory/Chest: Reports systems reviewed and no addt'l complaints, except as documented Gastrointestinal Gastrointestinal: Reports systems reviewed and no addt'l complaints, except as documented Physical Exam Const alert, oriented x3 and no apparent distress HEENT Head and Scalp: atraumatic Resp normal respiratory effort GI soft to palpation and non-tender Inspection: incision intact, healing well and drainage (none) Bimanual Exam - Vag & Uterus: uterus non-tender Uterus Palpation: uterus fundus firm (below Umbilicus) Assessment & Plan (1) Arrest of dilation, delivered, current hospitalization: COMMENT: 8-9 cm CPD suspected (2) delivery delivered: COMMENT: LTCS SM AOD 8-9 cm boy Perez PLAN: Plan s/p LTCS PPD # 1 1. routine post care 2. breast feeding- support given 3. rh positive 4. rubella immune
[2022-05-17] MEDS: Senna/Docusate Sodium 1 Tablet PO (10:44)
[2022-05-17 14:52] VITALS: BP 105/54; PULSE 83; RESP 16; TEMP 37
[2022-05-17 20:05] VITALS: BP 101/59; PULSE 91; RESP 16; TEMP 36.4; O2SAT 97
[2022-05-18] MEDS: Acetaminophen 500 MG Tablet 1000 MG PO ×2 (01:30→07:42)
[2022-05-18 01:35] VITALS: BP 109/64; PULSE 80; RESP 15; TEMP 36.6; O2SAT 97
[2022-05-18] MEDS: Naproxen 500 MG Tablet PO (03:45)
--- NOTE | 2022-05-18 03:58 | NURSING ---
This RN scanned in tylenol that was given during downtime at 0130.
--- NOTE | 2022-05-18 07:28 | PCM.PN.OB ---
Subjective Subjective Patient doing well without complaints. Tolerating PO. Ambulating and voiding without difficulty. feeding well. Denies chest pain, shortness of breath, calf pain/swelling, fevers, chills, lightheadedness. Objective Data Objective Data Vital Signs: Vital Signs Temp Pulse Resp BP Pulse Ox O2 Del Method 97.8 F 80 15 109/64 97 Room Air 05/18/22 01:35 05/18/22 01:35 05/18/22 01:35 05/18/22 01:35 05/18/22 01:35 05/18/22 01:35 Oxygen Delivery Method Room Air Weight: 159 lb 4 oz Body Mass Index (BMI) 31.1 Intake & Output: Intake and Output for Last 24 Hours 05/16/22 05/17/22 05/18/22 23:59 23:59 23:59 Intake Total 1945.88 / 1945.88 Output Total 2550 / 2550 700 / 700 Balance -604.12 / -604.12 -700 / -700 Lab / Micro Data Result Diagrams: 05/17/22 06:50 Micro: Microbiology 05/15/22 04:25 Nasal Secretion SARS-CoV-2 Antigen (Rapid) - Final ROS Constitutional Constitutional: Reports systems reviewed and no addt'l complaints, except as documented Cardiovascular Cardiovascular: Reports systems reviewed and no addt'l complaints, except as documented Respiratory/Chest Respiratory/Chest: Reports systems reviewed and no addt'l complaints, except as documented Gastrointestinal Gastrointestinal: Reports systems reviewed and no addt'l complaints, except as documented Physical Exam Const alert, oriented x3 and no apparent distress HEENT Head and Scalp: atraumatic Resp normal respiratory effort GI soft to palpation and non-tender Bimanual Exam - Vag & Uterus: uterus non-tender Uterus Palpation: uterus fundus firm (below Umbilicus) Assessment & Plan (1) delivery delivered: COMMENT: LTCS SM AOD 8-9 cm boy Perez (2) Arrest of dilation, delivered, current hospitalization: COMMENT: 8-9 cm CPD suspected PLAN: Plan s/p LTCS PPD # 2 1. routine post care 2. breast feeding- support given 3. rh positive 4. rubella immune
[2022-05-18] MEDS: Senna/Docusate Sodium 1 Tablet PO (07:42)
[2022-05-18 08:00] VITALS: BP 102/65; PULSE 83; RESP 18; TEMP 36.4; O2SAT 98
--- NOTE | 2022-05-19 14:59 | PCM.DC.SUM ---
Providers Date of Admission: 05/15/22 Primary Care Physician: No Primary Care Phys Reason For Visit: PRIMARY C/S Diagnosis Discharge Diagnosis (1) delivery delivered: Status: Acute Code(s): O82 - Encounter for delivery without indication (2) Arrest of dilation, delivered, current hospitalization: Status: Acute Code(s): O62.1 - Secondary uterine inertia Plan s/p LTCS PPD # 2 1. routine post care 2. breast feeding- support given 3. rh positive 4. rubella immune Medications at Discharge Home Medications prenat.vits,laurence,[id number] 1 tab PO DAILY 09/27/21 naproxen 500 mg tablet 500 mg PO BID PRN PRN Pain #30 tabs 05/16/22 oxycodone-acetaminophen 5 mg-325 mg tablet (Percocet) 1 tab PO Q6H PRN pain 7 days #20 tabs 05/16/22 Hospital Course Summary of Care Provided Hospital Course: patient presented for LTCS and had an uncomplicated delivery. Postoperatively patient had return of bowel and bladder function and was ambulating well, tolerating adequate p.o., and was stable for discharge to home on postop day #2. Discharge medications naproxen and Percocet. Follow-up in office in 2 weeks for incision check in 6 weeks for visit. Routine post section diet and activity instructions. Weight / BMI Weight Weight: 159 lb 4 oz Body Mass Index (BMI) 31.1 ABG / Lab / Microbiology Data Result Diagrams: 05/17/22 06:50 Microbiology: Microbiology 05/15/22 04:25 Nasal Secretion SARS-CoV-2 Antigen (Rapid) - Final D/C Instructions Discharge Diet: No restrictions Discharge Activity: May Not Drive (for 2 weeks or while taking narcotic pain medications.), May Shower and May Take a Tub Bath (in 7 days) May shower in (days): 0 May resume sexual activity in: 6-8 weeks (after seen by OB provider) Weight Bearing Status: Full weight bearing Call your doctor if your incision/area has: Continuous Slow Oozing, Sudden Increased Bleeding, Increased Pain/ Swelling, Increased Redness and Foul Smelling Discharge Call your doctor if you observe: Fever of 101 or Higher, Inability to urinate, Using more than 1 pad per hour (for more than 2 hours in a row or more), Shortness of breath, Dizziness, Chest pain and - (headache not controlled with tylenol, change in vision) Suture Line Care: Avoid Pulling/Pushing and Avoid Pinching/Bending Cleanse incision/area with: Soap & Water and Keep Dressing Clean & Dry Please Follow Up With: Khushboo Adam MD When: in 6 weeks for visit, call the office to make the appointment. If you had elevated blood pressures call the office to be seen within 1 week. Meaningful Use Info Meaningful Use Diagnoses (Choose all that apply): None applicable Discharge Plan Admission Admit Date/Time: 05/15/22 03:33 Attending Provider: Khushboo Adam Primary Care Provider: Care Physician,Leanna Primary Discharge Orders/Prescriptions Prescriptions: New oxycodone-acetaminophen [Percocet] 5-325 mg tablet 1 tab PO Q6H PRN (Reason: pain) 7 Days Qty: 20 0RF naproxen [naproxen] 500 mg tablet 500 mg PO BID PRN PRN (Reason: Pain) Qty: 30 1RF Continued prenat.vits,laurence,[id number] Tablet 1 tab PO DAILY Referrals / Follow Up: Care Physician,No Primary [Primary Care Provider] - Disposition Disposition (needs filled in before D/C Order can be placed): Home, Self Care
== END 2022-05-18 09:37 | disposition home or self-care (01) | DRG 788 ==
PROVIDERS: Admitting Provider Obstetrics & Gynecology; Visit Provider Obstetrics & Gynecology
DX: O48.0 Post-term pregnancy (principal); O33.9 Maternal care for disproportion, unspecified; O99.824 Streptococcus B carrier state complicating childbirth; O76 Abnormality in fetal heart rate and rhythm complicating labor and delivery; Z20.822 Contact with and (suspected) exposure to COVID-19; O62.1 Secondary uterine inertia; Z37.0 Single live birth; Z3A.41 41 weeks gestation of pregnancy
CPT/HCPCS: 36415; 59025; 59050; 85025; 85027; 86850; 86900; 86901; 87811; 99218; J7030; J7120; A4216; G0378; J2405